=== PATIENT | male | born 1980 | race Caucasian/White ===

== ENCOUNTER 2017-09-02 17:56 | Emergency (ER) | payer BC ==
[2017-09-02] MEDS ORDERED: SODIUM CHLORIDE 0.9% 1,000 ML IV STA (20:59)
--- NOTE | 2017-09-02 21:29 | ED ---
Nausea/Vomiting/Diarrhea HPI - General Chief complaint: Nausea/Vomiting/Diarrhea Stated complaint: DIARRHEA, COLD SYMPTOMS Time Seen by Provider: 09/02/17 20:58 Source: patient Mode of arrival: ambulatory Limitations: no limitations - History of Present Illness Initial comments: This is a 36-year-old male who presents to the ED with a chief complaint of diarrhea and upper respiratory infection symptoms. His history is significant for recent travel to [facility], which he returned from today. He states having head and nasal congestion, sore throat and a fever 5 days ago. He recalls visual hallucinations associated with the fever. The symptoms have been resolving, but he states feeling congested still. He reports the onset of diarrhea was 3 days ago and is watery in nature, occurring at least 4-5 times per day. He denies loss of appetite or abdominal pain. He has a history of Campylobacter infection causing diarrhea from a previous travel. - Related Data Home Medications Medication Instructions Recorded Confirmed Acetaminophen [Tylenol Extra 1,000 mg PO Q6H PRN 09/02/17 09/02/17 Strength] Acyclovir [Zovirax] 400 mg PO DAILY 09/02/17 09/02/17 Atenolol/Chlorthalidone 0.5 tab PO DAILY 09/02/17 09/02/17 [Atenolol-Chlorthalidone 50-25] Atorvastatin [Lipitor] 20 mg PO HS 09/02/17 09/02/17 Guaifenesin/Pseudoephedrne HCl 1 tab PO BID PRN 09/02/17 09/02/17 [Mucinex D ER Tablet] L.acidoph,Paracasei, B.lactis 1 cap PO DAILY 09/02/17 09/02/17 [Probiotic] Loperamide HCl [Imodium A-D] 2 mg PO Q6H PRN 09/02/17 09/02/17 Previous Rx's Medication Instructions Recorded Ciprofloxacin HCl [Cipro] 500 mg PO Q12HR #14 tablet 09/02/17 Allergies Allergy/AdvReac Type Severity Reaction Status Date / Time pertussis vaccine,adsorbed Allergy Rash/Hives Verified 09/02/17 18:11 Review of Systems ROS Statement: Those systems with pertinent positive or pertinent negative responses have been documented in the HPI. ROS Other: All systems not noted in ROS Statement are negative. Past Medical History Past Medical History: No Reported History History of Any Multi-Drug Resistant Organisms: None Reported Past Surgical History: No Surgical Hx Reported Past Psychological History: No Psychological Hx Reported Smoking Status: Current every day smoker Past Alcohol Use History: Occasional Past Drug Use History: None Reported General Exam Limitations: no limitations General appearance: alert, in no apparent distress Head exam: Present: atraumatic, normocephalic, normal inspection Respiratory exam: Present: normal lung sounds bilaterally. Absent: respiratory distress, wheezes, rales, rhonchi, stridor Cardiovascular Exam: Present: regular rate, normal rhythm, normal heart sounds. Absent: systolic murmur, diastolic murmur, rubs, gallop, clicks GI/Abdominal exam: Present: soft, normal bowel sounds. Absent: distended, tenderness, guarding, rebound, rigid, organomegaly, mass Back exam: Present: normal inspection Neurological exam: Present: alert, oriented X3, CN II-XII intact Psychiatric exam: Present: normal affect, normal mood Skin exam: Present: warm, dry, intact, normal color. Absent: rash Course Vital Signs 09/02/17 09/02/17 18:04 21:35 Temperature 98.7 F 97.6 F Pulse Rate 78 85 Respiratory 16 18 Rate Blood Pressure 152/94 134/75 O2 Sat by Pulse 98 99 Oximetry Medical Decision Making - Medical Decision Making 36-year-old male present emergency from for diarrhea, clicks symptoms. Patient has been traveling to multiple countries. Patient's having 4-5 episodes of loose watery diarrhea. Concern for possible traveler's diarrhea or other infections. Patient be discharged with ciprofloxacin will be given potassium here advised increase fluids, fruits and vegetables. He was given prescription for stool culture, C. diff testing. - Lab Data Result diagrams: 09/02/17 21:30 09/02/17 21:30 Lab Results 09/02/17 09/02/17 09/02/17 Range/Units 21:30 21:30 21:30 WBC 4.9 (3.8-10.6) k/uL RBC 5.34 (4.30-5.90) m/uL Hgb 16.0 (13.0-17.5) gm/dL Hct 44.7 (39.0-53.0) % MCV 83.8 (80.0-100.0) fL MCH 30.0 (25.0-35.0) pg MCHC 35.8 (31.0-37.0) g/dL RDW 13.7 (11.5-15.5) % Plt Count 211 (150-450) k/uL Neutrophils % 64 % Lymphocytes % 23 % Monocytes % 8 % Eosinophils % 1 % Basophils % 1 % Neutrophils # 3.2 (1.3-7.7) k/uL Lymphocytes # 1.1 (1.0-4.8) k/uL Monocytes # 0.4 (0-1.0) k/uL Eosinophils # 0.1 (0-0.7) k/uL Basophils # 0.1 (0-0.2) k/uL Sodium 141 (137-145) mmol/L Potassium 3.3 L (3.5-5.1) mmol/L Chloride 93 L (98-107) mmol/L Carbon Dioxide 34 H (22-30) mmol/L Anion Gap 14 mmol/L BUN 14 (9-20) mg/dL Creatinine 0.90 (0.66-1.25) mg/dL Est GFR (MDRD) Af Amer >60 (>60 ml/min/1.73 sqM) Est GFR (MDRD) Non-Af >60 (>60 ml/min/1.73 sqM) Glucose 103 H (74-99) mg/dL Calcium 9.4 (8.4-10.2) mg/dL Total Bilirubin 0.6 (0.2-1.3) mg/dL AST 28 (17-59) U/L ALT 52 (21-72) U/L Alkaline Phosphatase 96 (38-126) U/L Total Protein 7.3 (6.3-8.2) g/dL Albumin 4.5 (3.5-5.0) g/dL Amylase 58 (30-110) U/L Lipase 68 (23-300) U/L Urine Color Yellow Urine Appearance Clear (Clear) Urine pH 6.0 (5.0-8.0) Ur Specific [place] 1.017 (1.001-1.035) Urine Protein 1+ H (Negative) Urine Glucose (UA) Negative (Negative) Urine Ketones Negative (Negative) Urine Blood Negative (Negative) Urine Nitrite Negative (Negative) Urine Bilirubin Negative (Negative) Urine Urobilinogen <2.0 (<2.0) mg/dL Ur Leukocyte Esterase Negative (Negative) Urine RBC 3 (0-5) /hpf Urine WBC 2 (0-5) /hpf Amorphous Sediment Occasional H (None) /hpf Hyaline Casts 3 H (0-2) /lpf Urine Mucus Few H (None) /hpf Urine Sperm Occasional H (None) /hpf Disposition Clinical Impression: Traveler's diarrhea, URI (upper respiratory infection) Disposition: HOME SELF-CARE Condition: Stable Instructions: Acute Diarrhea (ED) Additional Instructions: Please return to the Emergency Department if symptoms worsen or any other concerns. Prescriptions: Ciprofloxacin HCl [Cipro] 500 mg PO Q12HR #14 tablet Referrals: Curt Arrieta DO [Primary Care Provider] - 1-2 days Time of Disposition: 22:32
[2017-09-02 21:36] VITALS: RESP 18
[2017-09-02 21:39] LABS: Basophils # (A) 0.1 k/uL (0-0.2); Basophils % (A) 1 %; Eosinophils # (A) 0.1 k/uL (0-0.7); Eosinophils % (A) 1 %; HCT 44.7 % (39.0-53.0); Lymphocytes # (A) 1.1 k/uL (1.0-4.8); Lymphocytes % (A) 23 %; MCHC 35.8 g/dL (31.0-37.0); MCV 83.8 fL (80.0-100.0); Mean Platelet Volume 7.1; Monocytes # (A) 0.4 k/uL (0-1.0); Monocytes % (A) 8 %; Neutrophils # (A) 3.2 k/uL (1.3-7.7); Neutrophils % (A) 64 %; Platelet Count 211 k/uL (150-450); RBC 5.34 m/uL (4.30-5.90); RDW 13.7 % (11.5-15.5); WBC 4.9 k/uL (3.8-10.6)
[2017-09-02 21:48] LABS: Amorphous Sediment,Urine Occasional /hpf; Appearance,Urine Clear (Clear); Bilirubin,Urine Negative (Negative); Blood,Urine Negative (Negative); Color,Urine Yellow; Glucose,Urine (UA) Negative (Negative); Hyaline Casts,Urine 3 /lpf (0-2); Ketones,Urine Negative (Negative); Leukocyte Esterase,Urine Negative (Negative); Mucus,Urine Few /hpf; Nitrite,Urine Negative (Negative); Protein,Urine 1+ (Negative); RBC,Urine 3 /hpf (0-5); Specific Gravity,Urine 1.017 (1.001-1.035); Sperm,Urine Occasional /hpf; Urobilinogen,Urine <2.0 mg/dL (<2.0); WBC,Urine 2 /hpf (0-5)
[2017-09-02 21:50] LABS: ALT 52 U/L (21-72); AST 28 U/L (17-59); Albumin 4.5 g/dL (3.5-5.0); Alkaline Phosphatase 96 U/L (38-126); Amylase 58 U/L (30-110); Anion Gap 14 mmol/L; Blood Urea Nitrogen 14 mg/dL (9-20); Calcium 9.4 mg/dL (8.4-10.2); Carbon Dioxide 34 mmol/L (22-30); Chloride 93 mmol/L (98-107); Glucose 103 mg/dL (74-99); Lipase 68 U/L (23-300); Potassium 3.3 mmol/L (3.5-5.1); Sodium 141 mmol/L (137-145); Total Bilirubin 0.6 mg/dL (0.2-1.3); Total Protein 7.3 g/dL (6.3-8.2)
[2017-09-02] MEDS ORDERED: POTASSIUM CHLORIDE ER 20 MEQ TAB.ER PO STA (22:30)
[2017-09-02] MEDS ORDERED: CIPROFLOXACIN HCL 500 MG TAB PO STA (22:30)
[2017-09-02 22:49] VITALS: BP 111/64; PULSE 82; TEMP 97.4
== END 2017-09-02 22:53 | disposition home or self-care (01) ==
LOC: EC 17:56
DX: R19.7 Diarrhea, unspecified (principal); J06.9 Acute upper respiratory infection, unspecified; F17.200 Nicotine dependence, unspecified, uncomplicated; Z88.7 Allergy status to serum and vaccine; Z79.899 Other long term (current) drug therapy
CPT/HCPCS: 36415; 80053; 81001; 82150; 83690; 85025; 87040; 87045; 87046; 87324; 96360; 99284